=== PATIENT | female | born 1950 | race Caucasian/White ===

== ENCOUNTER 2019-05-29 08:28 | Day surgery (SDC) | payer MEDICARE ==
--- NOTE | 2019-05-28 07:46 | HP ---
HISTORY OF PRESENT ILLNESS: Ms. Nelson returns to our office. She has had a left total knee replacement since last time we saw her. The right leg pain continues in spite of GTB injections, spine injections, director of career resources therapy, medications, and time. She would like to know if surgery can help her. There are two areas of pain, one over the greater trochanteric bursa IT band. The other area radiates in the posterior thigh to the right ankle, then into the foot. There is no obvious weakness or incontinence. The left leg is much better. REVIEW OF SYSTEMS: A 10-point review of systems has been completed and is negative other than stated in the above HPI. PAST MEDICAL HISTORY: Thyroid disease, hypertension, edema, right hip pain, right knee pain, , mild intermittent asthma, depression, anxiety, GERD, lumbar pain, and spondylosis in lumbar region. MEDICATIONS: 1. Cyclobenzaprine. 2. Citalopram. 3. Lisinopril/hydrochlorothiazide. 4. latanoprost. 5. Omeprazole. 6. Flonase. 7. Ventolin. 8. Levothyroxine. 9. Sertraline. 10. Lysine. 11. Prenatals. 12. Niacinamide. 13. Joint Support. 14. Ferris-3. 15. Citalopram. PAST SURGICAL HISTORY: Appendectomy, tonsillectomy, foot surgery, left cataracts, right cataracts, total knee replacement. FAMILY HISTORY: Mother is , diagnosed with hypertension. SOCIAL HISTORY: The patient denies tobacco use, alcohol use, or drug use. PHYSICAL EXAMINATION: CONSTITUTIONAL: The patient is well appearing, well nourished, alert, no visible distress. RESPIRATORY: Normal work of breathing on room air. Symmetric chest rise. NEUROLOGIC: Motor exam; there is normal strength in iliopsoas, quadriceps, hamstrings, anterior tib, EHL, gastrocs, and toe flexors. Sensory exam; Mild L5 decrease in sensation on the right lower extremity exam, orthopedic tender right greater trochanteric bursa. IMAGING: MRI, right L3-4 lateral recess stenosis, L4-5 canal stenosis, L4-5 facet . Flexion-extension x-rays, at L4-L5. ASSESSMENT AND PLAN: Greater trochanteric bursitis and other spondylosis in lumbar region. Dr. Swanson has offered surgery, decompressive laminectomy and the patient states that she would like to proceed. Informed consent; we have discussed indications, risks, benefits, alternatives, and expected results from surgery. The risks discussed included, but were not limited to, bleeding, infection, CSF leak, nerve damage, weakness, incontinence, cauda equina injury, arachnoiditis, paralysis, ventilator dependence, wheelchair dependence, loss of vision, cardiopulmonary complications of anesthesia, or . Long-term complications discussed included but were not limited to spinal instability and the need for further surgery. The patient states she understands the risks and is willing to proceed. Job ID: [id number]
[2019-05-28 13:39] VITALS: BMI 27.4
[2019-05-29] MEDS ORDERED: Clindamycin/D5W 900 mg/50 ml Premix Bag ONE ×2 (08:57→16:23)
[2019-05-29] MEDS ORDERED: Levofloxacin 500 mg/D5W 100 ml Premix Bag ONE (08:57)
[2019-05-29 09:17] LABS: #Basophils 0.1 thou/uL (0.0-0.2); #Eosinphils 0.3 thou/uL (0.0-0.7); #Lymphocytes 2.9 thou/uL (1.20-3.40); #Monocytes 0.8 thou/uL (0.11-0.59); #Neutrophils 4.2 thou/uL (1.40-6.50); %Basophils 0.7 % (0.0-1.0); %Eosinophils 3.3 % (0.0-10.0); %Lymphocytes 35.8 % (21.0-51.0); %Monocytes 9.3 % (0.0-10.0); %Neutrophils 50.9 % (42.0-75.0); Hemoglobin 12.8 g/dL (12.0-16.0); Mean Corpuscular Hemoglobin 30.2 pg (27.0-31.0); Mean Corpuscular Volume 88.7 fL (78.0-98.0); Mean Platelet Volume 6.2 fL (7.4-10.4); Platelet Count 335 thou/uL (130-400); RBC Distribution Width 13.2 % (11.5-14.5); Red Blood Cell (RBC) Count 4.23 mill/uL (4.20-5.40); White Blood Cell (WBC) Count 8.2 thou/uL (4.8-10.8)
[2019-05-29 09:24] LABS: PTT 24.8 SEC (22.9-36.1)
[2019-05-29 09:35] LABS: Anion Gap 13 mmol/L (10-20); BUN (Urea Nitrogen) 13 mg/dL (9.8-20.1); Calc. Creatinine Clearance 76 mL/min (70-130); Calcium 9.9 mg/dL (7.8-10.44); Carbon Dioxide 28 mmol/L (23-31); Chloride 101 mmol/L (98-107); Estimated GFR-MDRD 79; Glucose 105 mg/dL (83-110); Potassium 3.3 mmol/L (3.5-5.1); Sodium 139 mmol/L (136-145)
[2019-05-29] MEDS ORDERED: Sodium Chloride 0.9% 10 ML ONE (11:00)
[2019-05-29] MEDS ORDERED: Fentanyl 100 MCG/2 ML VIAL ONE ×2 (11:00→13:52)
[2019-05-29] MEDS ORDERED: Thrombin 5000 UNITS/5 ML VIAL ONE (11:00)
[2019-05-29] MEDS ORDERED: Lidocaine 2% Jelly 5 ML TUBE ONE (11:00)
[2019-05-29] MEDS ORDERED: Bupivacaine HCl 0.5%/Epinephrine 1:200,000/PF 30 ml Vial ONE (11:35)
[2019-05-29] MEDS ORDERED: PHENYLEPHRINE-NS 100 MCG/ML 10 ML SYRINGE ONE (13:26)
--- NOTE | 2019-05-29 16:17 | OP ---
DATE OF PROCEDURE: 05/29/2019 JIG GRINDER SET UP OPERATOR: Juliana Regan PA-C. PREOPERATIVE INDICATION: Treat pain and prevent neurological deterioration. PREOPERATIVE DIAGNOSIS: Lumbar stenosis with neurogenic claudication, manifest as right greater than the left leg pain. POSTOPERATIVE DIAGNOSIS: Lumbar stenosis with neurogenic claudication, manifest as right greater than the left leg pain. OPERATIVE PROCEDURE: Decompressive laminectomy, medial facetectomy, foraminotomy, L3-L4 and L4-L5. PREOPERATIVE MEDICATIONS: Ancef 2 g IV. DRAIN NUMBER: Zero. DRAIN TYPE: None. DESCRIPTION OF PROCEDURE: The patient was brought to the operating room. General endotracheal anesthesia was induced. The patient was positioned prone on the operating table with her chest and hips supported by gel-filled chest rolls. A lateral fluoro radiograph was used to plan our incision. The lumbar skin was sterilely prepped and draped. We opened with a 10 blade knife and we controlled bleeding with bipolar and monopolar cautery. We used monopolar cautery to dissect through subcutaneous tissues to the thoracodorsal fascia. We incised the fascia in the midline and reflected the paraspinal muscles off the spinous process and lamina of L3, L4, and L5. A lateral fluoro radiograph confirmed the levels upon which we were operating. We then used an Adson rongeur to remove the spinous process of L3, L4 and the superior portion of L5. Kerrison rongeur was brought into the field. With the Kerrison, we fashioned the laminectomy down the midline. We widened our laminectomy defect until we were lateral to the dura. We had to perform medial facetectomies at L3-L4 and L4-L5 to decompress the traversing nerve roots. We performed foraminotomies over the exiting L3, L4, and L5 nerve roots bilaterally. A Muñoz ball probe could pass through the canal, the lateral recess, and out the foramen with each of the nerve roots after decompression. We irrigated copiously with bacitracin irrigation. We waxed the bone edges. We controlled the bleeding with gentle bipolar cautery. We closed the wound in anatomical layers. We applied a sterile dressing. This was a clean case, no contamination. Job ID: [id number]
--- NOTE | 2019-06-01 11:35 | EKG ---
Test Reason : PREOP Blood Pressure : / mmHG Vent. Rate : 078 BPM Atrial Rate : 078 BPM P-R Int : 158 ms QRS Dur : 088 ms QT Int : 400 ms P-R-T Axes : 074 049 070 degrees QTc Int : 456 ms Sinus rhythm with Premature supraventricular complexes Otherwise normal ECG No previous ECGs available Confirmed by Evelin HICKEY ([id number]) on 06/01/2019 11:35:32 AM Referred By: ANJALI Confirmed By:Evelin HICKEY
== END 2019-05-29 17:15 | disposition home or self-care (01) ==
LOC: SDC 08:28
PROVIDERS: ATTEND Neurological Surgery
PROC: 01NB0ZZ Release Lumbar Nerve, Open Approach (ICD-10-PCS; principal; 2019-05-29)
DX: M48.062 Spinal stenosis, lumbar region with neurogenic claudication (principal); M47.816 Spondylosis without myelopathy or radiculopathy, lumbar region; M70.61 Trochanteric bursitis, right hip; I10 Essential (primary) hypertension; J45.20 Mild intermittent asthma, uncomplicated; K21.9 Gastro-esophageal reflux disease without esophagitis; Z79.899 Other long term (current) drug therapy; Z88.0 Allergy status to penicillin; Z88.2 Allergy status to sulfonamides; Z91.013 Allergy to seafood; Z91.040 Latex allergy status
CPT/HCPCS: 36415; 76000; 80048; 85025; 85610; 85730; 93005; 93010; J0670; J1956; J3010; J3370; J3490

== ENCOUNTER 2019-05-31 00:35 | Inpatient (IN) | payer MEDICARE ==
[2019-05-31] MEDS ORDERED: Cefepime 2 GM VIAL ONE (05:16)
[2019-05-31] MEDS ORDERED: Clindamycin/D5W 900 mg/50 ml Premix Bag ONE (05:16)
[2019-05-31] MEDS ORDERED: Sodium Chloride 0.9% 10 ML ONE (05:47)
[2019-05-31] MEDS ORDERED: Thrombin 5000 UNITS/5 ML VIAL ONE (05:47)
[2019-05-31] MEDS ORDERED: Fentanyl 100 MCG/2 ML VIAL ONE ×2 (06:04→08:01)
[2019-05-31] MEDS ORDERED: HYDROmorphone 2 MG/ML VIAL ONE (07:15)
[2019-05-31] MEDS ORDERED: Mag-Al 1200 mg/1200 mg/30 ML UDCUP PO PRN (07:28)
[2019-05-31] MEDS ORDERED: Acetaminophen/Codeine 30-300mg Tablet PO PRN (07:28)
[2019-05-31] MEDS ORDERED: tiZANidine HCl 4 MG TAB PO PRN (07:28)
[2019-05-31] MEDS ORDERED: Ondansetron PF 4 MG/2 ML Vial IVP PRN (07:28)
[2019-05-31] MEDS ORDERED: Morphine 2 MG/ML SYRINGE SLOW IVP PRN (07:28)
[2019-05-31] MEDS ORDERED: Acetaminophen 325 MG TAB PO PRN (07:28)
[2019-05-31] MEDS ORDERED: diphenhydrAMINE 50 MG/ML VIAL IVP PRN (07:28)
--- NOTE | 2019-05-31 07:45 | OP ---
DATE OF PROCEDURE: 05/31/2019 CANVAS CUTTER MACHINE: Amauri Fontanez PA-C INDICATION: Neurologic decline. DIAGNOSIS: Spinal lumbar epidural hematoma with compression. PROCEDURES: A reopening of wound, irrigation and debridement, evacuation of hematoma, and placement of subfascial drain. ANESTHESIA: General. DESCRIPTION OF PROCEDURE: The patient was brought into the operating room and placed under general anesthesia. She was flipped from supine to prone position on the operating room table. A linear incision was identified from her recent lumbar spine procedure. This was prepped and draped. Following an appropriate operative pause, the incision was created. The soft tissues were swept away from midline and self-retaining retractors were placed. Both above the fascia and beneath the fascia, there was significant degree of hematoma present. This was completely irrigated away until the underlying thecal sac was well decompressed. There were no obvious bleeding vessels during our encounter. A subfascial drain was then placed and brought out through a separate puncture site. The wound was then closed in anatomic layers and the procedure came to an end without known complications. Job ID: [id number]
[2019-05-31] MEDS ORDERED: HYDROmorphone 2 MG/ML VIAL SLOW IVP PRN (07:56)
[2019-05-31] MEDS ORDERED: Promethazine HCl 25 MG/ML VIAL IM PRN (07:56)
[2019-05-31] MEDS ORDERED: Ondansetron HCl/PF 4 MG/2 ML Vial IVP PRN (07:56)
[2019-05-31] MEDS ORDERED: Promethazine HCl 25 MG/ML VIAL SLOW IVP PRN (07:56)
[2019-05-31] MEDS ORDERED: PACU-Morphine 4MG/ML VIAL SLOW IVP PRN (07:56)
--- NOTE | 2019-05-31 08:26 | HP ---
HISTORY OF PRESENT ILLNESS: Ms. Nelson is a very pleasant 69-year-old woman, who is actually now roughly 48 hours out from lumbar laminectomy with Dr. Swanson on Saturday. This is outpatient and the patient actually went home the same day and did quite well that first night. She states that around 10 o'clock that evening on Saturday, she started to have more increasing pain, but figured this was related to typical postoperative discomforts. She went to bed and when she woke up yesterday, this pain persisted and increased even more than around some time early evening 5 or 6 o'clock. She started to have weakness in her legs and began just crawling around her home. She additionally reports that she has laid towels on the floor for her to crawl to whenever she needed to urinate, so that she has not needed to catch her urine with. Around 10 or 11 o'clock, she decided that this was likely abnormal and called EMS, which took her to the [place] [facility], where they then transferred to [facility] in [place]. They performed an MRI scan, which reveals epidural fluid collection causing an imposing critical stenosis to the central canal around the L3 through L5 level and very well likely explains the symptoms that she is experiencing. PAST MEDICAL HISTORY: Significant for hypothyroidism, hypertension, mild intermittent asthma, depression, anxiety, and gastroesophageal reflux disease. CURRENT MEDICATIONS: 1. Citalopram. 2. Niacinamide. 3. Sertraline. 4. Levothyroxine. 5. Ventolin. 6. Flonase. 7. Omeprazole. 8. Latanoprost. 9. Lisinopril. 10. Hydrochlorothiazide. 11. Cyclobenzaprine. PAST SURGICAL HISTORY: Appendectomy, tonsillectomy, unspecified foot surgery, left cataract surgery, right cataract surgery, total knee replacement, unspecified laterality, and lumbar decompression. ALLERGIES: TO PENICILLIN, SULFA, LATEX, AND UNSPECIFIED FISH CONTAINING PRODUCTS. PHYSICAL EXAMINATION: The patient was alert and oriented x3. She does not appear in any significant distress. She has excellent strength and plantar dorsiflexion; however, she has 4- maybe 3+ strength with her proximal lower extremities exhibiting great difficulty and lifting her legs off the bed. When I assist her and release, she drops nearly back to the bed. If she bends her knees, I can support her knee and she has somewhat maintained strength with knee extension, but again is not able to go into full extension. All this is very well likely explained by her imaging on MRI scan. ASSESSMENT: Bilateral lower extremity weakness, spinal stenosis, and epidural fluid collection. PLAN: Given the severe stenosis as seen on her imaging, this could represent epidural hematoma or less likely seroma or CSF collection. Given the significant nature of her weakness, it is likely best recommended that we take her for reoperation emergently to decompress this level again and remove the fluid collection. This was discussed with her at length at bedside and she would like to proceed. Case was also discussed with Dr. Terrazas, who then came and visited with the patient as well. He explained the risks, benefits, and alternatives of the procedure. The patient expressed understanding, elected to move forward with surgery, which would be a reoperation to L3 through L5 exploration and washout. Job ID: [id number]
--- NOTE | 2019-05-31 08:56 | MRI ---
PRELIMINARY REPORT/[facility]/AFTER HOURS PROCEDURE PROCEDURE INFORMATION: Exam: MR Lumbar Spine Without Contrast. Exam date and time: 05/31/2019 2:21 AM Clinical history: 69 years old, female; Prior surgery; Surgery date: Post-operative (0-2 days); Surgery type: Lumbar surgery on 05/29; Patient HX: Natalee presents to the ED as a xfer from [facility] for bilateral lower extremity weakness S/P lumbar back surgery yesterday morning. PT reports the surgery was done by Dr. Swanson, and states that she was feeling fine until her medications wore off. PT reports inability to ambulate due to lower extremity weakness, and reports " i had to crawl to get around the house". PT denies numbness in leg and pelvis, and states she hasn't fallen since the surgery TECHNIQUE: Imaging protocol: Multiplanar magnetic resonance images of the lumbar spine without intravenous contrast. COMPARISON: No relevant prior studies available. FINDINGS: Vertebrae: Vertebral bodies are normal height. Alignment is normal. Surgical changes are compatible w ith L3-L5 posterior decompression with bilateral laminectomies. Marrow signal is along the L3 inferior and L4 superior endplates with disk space narrowing with some hyperintense signal. Spinal cord: Thecal sac dorsal extrinsic compression at the posterior decompression is moderate to ma rked due to a posterior CSF intensity collection, which measures 4.5 cm AP x 1.5 cm ML x 1.5 cm CC. L2-L3: Foraminal stenosis is mild due to disk bulge. L3-L4: Foraminal stenosis is moderate to severe due to disk degeneration as well as endplate and face t proliferation. Thecal sac dorsal extrinsic compression at the posterior decompression is moderate to marked due to a posterior CSF intensity collection L4-L5: Foraminal stenosis is moderate due to endplate and facet proliferation. Thecal sac dorsal extr insic compression at the posterior decompression is mild to moderate due to a posterior CSF intensity collection. L5-S1: No significant disc disease. No significant spinal stenosis. Soft tissues: Extensive superficial soft tissue selling with a superficial gas and fluid collection 2 .5 cm AP x 3.7 cm ML x 9.4 cm CC IMPRESSION: Marrow signal is along the L3 inferior and L4 superior endplates with disk space narrowing with some hyperintense signal could be degenerative, however infectious process cannot be excluded, recommend correlation to prior MR if available and clinical corelation. L3-L4: Foraminal stenosis is moderate to severe due to disk degeneratino as well as endplate and face t proliferation. Thecal sac dorsal extrinsic compression at the posterior decompression is moderate to marked due to a posterior CSF intensity collection, as detailed. Thank you for allowing us to participate in the care of your patient. Dictated and Authenticated by: Shanae Albright MD 05/31/2019 3:33 AM Central Time ([place] & [place]) FINAL REPORT MRI LUMBAR SPINE WITHOUT CONTRAST PERFORMED ON AN EMERGENCY BASIS: 05/31/2019 0228 HOURS HISTORY: Back pain and leg weakness. Lumbar surgery within the past 24 hours. FINDINGS: The preliminary report by Dr. Paulino is reviewed. At the postoperative level, L3-4, the oval fluid collection within the posterior aspect of the centra l spinal canal measures up to 3.4 cm length by 1.6 cm depth by 1.5 cm width. It results in severe compression of the thecal sac and cauda equina anteriorly, with complete loss in the AP diameter of t he thecal sac on image #11 of the T2 weighted images. Fluid-fluid level within the collection suggests a hematoma. The size of the hematoma and severity of cauda equina compression is felt to be underestimated in the preliminary report. The complex gas and fluid collection within the posterior subcutaneous tissues from recent surgery an d multilevel degenerative changes throughout the lumbar spine are as otherwise detailed in the preliminary report. The disparity with the preliminary report and the severity of cauda equina compression were discussed with Amauri Fontanez from the neurosurgery service. The degree of cauda equina compression was recognized by the clinicians and the patient was taken to surgery for operative decompression. CODE QD Transcribed Date/Time: 05/31/2019 9:12 AM
[2019-05-31] MEDS: Clindamycin/D5W 900 MG in Premix Bag 1 BAG IVPB SCH ×2 (14:07→21:39)
[2019-05-31] MEDS: Sodium Chloride 0.9% 1,000 ML IV SCH ×2 (18:31→19:52)
[2019-05-31] MEDS ORDERED: FLU VACC TS2019-20(65YR UP)/PF 180 MCG/0.5 ML SYRINGE IM ONE (20:00)
[2019-06-01] MEDS: Acetaminophen/Codeine 30-300mg Tablet PO PRN ×4 (02:06→23:24)
--- NOTE | 2019-06-01 08:03 | PRG ---
DATE OF SERVICE: 06/01/2019 I saw Ms. Nelson in her hospital room this morning. She made to her home from her lumbar laminectomy on Saturday. She returned to the hospital with back pain and difficulty getting the legs to move where she wanted them to. She was taken by Dr. Terrazas to the operating room for evacuation of hematoma. Since that surgery, she is feeling much better. She worked with physical therapy yesterday. I am seeing her this morning and her electronic chart does not show fever recorded. Her other vital signs are relatively stable. There is good strength in lower extremities. There is no lack of sensation. Ms. Nelson is scared to go home and I understand why. She has been working with Physical Therapy here in the hospital, and once she is safe for activities of daily living, she will go home, but if she has trepidation about returning to independence and transition through rehab may be beneficial to her. We will start the process of having that evaluation done. Job ID: [id number]
[2019-06-01] MEDS: Clindamycin/D5W 900 MG in Premix Bag 1 BAG IVPB SCH ×3 (08:56→23:25)
--- NOTE | 2019-06-01 09:31 | PRG ---
DATE OF SERVICE: 05/31/2019 Ms. Nelson is a pleasant 69-year-old female, who underwent a two-level lumbar decompression on May 29. She is now 2 days out. She was doing well up until the last 12 hours, where she started to have progressive weakness in the lower extremities. It reached a point where she was crawling around her home to mobilize and use the restroom. This prompted her to seek attention at her local ER at [place]. She has subsequently been transferred to [facility] for further evaluation. As part of her ER evaluation, she underwent an MRI scan of the lumbar spine, which reveals a highly compressive fluid collection at the level of her lumbar decompression. This is almost certainly causative of her newer onset of symptoms. Given the findings on imaging, and given the progressive nature of her lower extremity dysfunction, it is prudent to take her to the operating room for the purposes of decompression. Risks, benefits, and alternatives of surgical procedure were discussed with the patient. She understands and has provided informed consent. Job ID: [id number]
[2019-06-01] MEDS: Sodium Chloride 0.9% 1,000 ML IV SCH ×2 (10:36→22:38)
[2019-06-01] MEDS ORDERED: FLU VACC TS2019-20(65YR UP)/PF 180 MCG/0.5 ML SYRINGE IM ONE (14:45)
[2019-06-02] MEDS ORDERED: PROVENTIL INHALER 6.7 G (200 INHALATIONS) INH PRN (06:36)
--- NOTE | 2019-06-02 07:33 | PRG ---
DATE OF SERVICE: 06/02/2019 I saw Estelle Nelson in her hospital room this morning. She had a good day working with physical therapy yesterday. She was offered inpatient rehabilitation here in [facility], but preferred a swing bed in [place]. Because this is a swing bed, the arrangements can be made for transfer today. Overnight, there are no fevers recorded. Other vital signs have been stable. There is good neurological function in lower extremities and the drain has been removed. Ms. Nelson questions about what caused her postoperative hematoma. Her risk factor is an excessive amount of fish oil supplement use, which she did not record on her preoperative medication list in our office. I think this puts her at risk. There was no significant intraoperative hemorrhage, had any difficulty being controlled. I believe that will be a good neurological outcome from this and she can benefit from inpatient rehabilitation. We will transfer her today. Job ID: [id number]
[2019-06-02] MEDS: Cepastat Lozenges 1 LOZ PO PRN ×4 (08:34→21:02)
[2019-06-02] MEDS: Lisinopril/Hydrochlorothiazide 20/25 mg Tablet PO SCH ×2 (08:34→20:34)
[2019-06-02] MEDS: Gabapentin 300 MG CAP PO SCH ×3 (08:35→20:33)
[2019-06-02] MEDS ORDERED: Citalopram 20 MG TAB PO SCH (09:00)
[2019-06-02] MEDS ORDERED: Latanoprost 0.005% Ophth Soln 2.5 ml Bottle EA EYE SCH (21:00)
[2019-06-02 22:20] VITALS: BP 146/83; TEMP 98.9
[2019-06-03] MEDS ORDERED: Levothyroxine Sodium 75 MCG TAB PO SCH (06:00)
== END 2019-06-02 21:25 | DRG 908 ==
LOC: ERS 00:35 → SDC 06:03 → SJJU 11:55
PROVIDERS: ADMIT Neurological Surgery; ATTEND Neurological Surgery
PROC: 01NB0ZZ Release Lumbar Nerve, Open Approach (ICD-10-PCS; principal; 2019-05-31)
DX: G97.62 Postprocedural hematoma of a nervous system organ or structure following other procedure (principal); G95.29 Other cord compression; M48.061 Spinal stenosis, lumbar region without neurogenic claudication; K21.9 Gastro-esophageal reflux disease without esophagitis; F32.9 Major depressive disorder, single episode, unspecified; F41.9 Anxiety disorder, unspecified; I10 Essential (primary) hypertension; E03.9 Hypothyroidism, unspecified; Y83.8 Other surgical procedures as the cause of abnormal reaction of the patient, or of later complication, without mention of misadventure at the time of the procedure
CPT/HCPCS: 36415; 72148; 76000; 80048; 85025; 85610; 85730; 93005; 93010; 96365; J0670; J0692; J1170; J1200; J1956; J3010; J3370; J3490